=== PATIENT | male | born 1975 | race Caucasian/White ===

== ENCOUNTER 2017-05-31 09:47 | Outpatient (CLI) | payer OTHER | END 2017-05-31 09:48 | disposition home or self-care (01) | LOC: SC 09:47 | PROVIDERS: ATTEND Internal Medicine Pulmonary Disease | DX: G47.33 Obstructive sleep apnea (adult) (pediatric) (principal); G47.61 Periodic limb movement disorder | CPT/HCPCS: 99203; 99212 ==

== ENCOUNTER 2018-01-26 08:00 | Outpatient (CLI) | payer OTHER ==
--- NOTE | 2018-01-26 14:37 | MRI Report ---
Reason: PAIN IN UNSPECIFED SHOULDER Procedure Date: 01/26/2018 Accession Number: [id number] / [id number] Procedure: MRI - Shoulder LT W/O CPT Code: FULL RESULT: EXAM: LEFT SHOULDER MRI WITHOUT CONTRAST EXAM DATE: 01/26/2018 08:58 AM. CLINICAL HISTORY: Bilateral shoulder pain. COMPARISON: None. TECHNIQUE: Multiplanar, multisequence T1-weighted and fluid-sensitive sequences of the shoulder without contrast. Other: None. FINDINGS: Acromioclavicular Region: The acromion is type II. The acromioclavicular joint is unremarkable. The coracoacromial and coracoclavicular ligaments are intact. No subacromial/subdeltoid bursal fluid. Glenohumeral Region: No subluxation. No effusion or loose bodies. The articular cartilage is unremarkable. The glenohumeral ligaments and joint capsule are unremarkable. Bone Marrow: No fracture, marrow edema or bone lesions. Labrum: The labrum is unremarkable on this nonarthrographic study. Musculature/Rotator Cuff: Mild T2 hyperintensity distal supraspinatus, tendinosis. Remaining rotator cuff tendons appear normal. No edema or fatty atrophy. Mild edema in the rotator interval. Biceps Tendon: The long head of the biceps tendon and biceps viry are intact. Other: The subcutaneous tissues are unremarkable. IMPRESSION: 1. Mild distal supraspinatus tendinosis. 2. Labrum appears intact on noncontrast imaging. 3. Bony structures appear normal. 4. Mild edema in the rotator interval, bursitis versus sprain. [facility] SE[facility]
--- NOTE | 2018-01-26 14:54 | MRI Report ---
Reason: PAIN IN UNSPECIFED SHOULDER Procedure Date: 01/26/2018 Accession Number: [id number] / [id number] Procedure: MRI - Shoulder RT W/O CPT Code: FULL RESULT: EXAM: RIGHT SHOULDER MRI WITHOUT CONTRAST EXAM DATE: 01/26/2018 09:11 AM. CLINICAL HISTORY: Bilateral shoulder pain. COMPARISON: None. TECHNIQUE: Multiplanar, multisequence T1-weighted and fluid-sensitive sequences of the shoulder without contrast. Other: None. FINDINGS: Acromioclavicular Region: The acromion is type II. The acromioclavicular joint is unremarkable. The coracoacromial and coracoclavicular ligaments are intact. No subacromial/subdeltoid bursal fluid. Glenohumeral Region: No subluxation. No effusion or loose bodies. The articular cartilage is unremarkable. The glenohumeral ligaments and joint capsule are unremarkable. Bone Marrow: No fracture, marrow edema or bone lesions. Labrum: The labrum is unremarkable on this nonarthrographic study. Musculature/Rotator Cuff: Mild T2 hyperintensity distal infraspinatus. Also, associated 0.7 cm 25-50% partial thickness undersurface tear. Remaining rotator cuff tendons appear normal. No edema or fatty atrophy. Biceps Tendon: The long head of the biceps tendon and biceps viry are intact. Other: The subcutaneous tissues are unremarkable. IMPRESSION: 1. Mild tendinosis and small partial-thickness undersurface tear of the distal infraspinatus. 2. Bony structures unremarkable. 3. Labrum appears intact on noncontrast imaging. [facility] SECTION
== END 2018-01-26 08:01 | disposition home or self-care (01) ==
LOC: DI 08:00
PROVIDERS: ATTEND Student in an Organized Health Care Education/Training Program
DX: M67.814 Other specified disorders of tendon, left shoulder (principal); M67.813 Other specified disorders of tendon, right shoulder; S46.811A Strain of other muscles, fascia and tendons at shoulder and upper arm level, right arm, initial encounter

== ENCOUNTER 2021-11-03 10:49 | Outpatient (CLI) | payer OTHER ==
[2021-11-03 12:09] VITALS: BP 138/76
--- NOTE | 2021-11-03 12:09 | SLEEP CARE CONSULTATION ---
Information from patient questionnaire entered by Silvina De Paz. I have reviewed and concur with the information entered by Silvina De Paz. This document represents the service I personally performed and the decisions made by me, Vianey Solorio ARNP. History of Present Illness Service Date and Time: 11/03/2021 1049 Reason for Visit: Previously diagnosed sleep apnea, sleep apnea on CPAP therapy, Re-establish care Chief Complaint: reports: Unrefreshed sleep, Snoring, Excessive daytime sleepiness, Observed pauses in breathing, Fatigue, Frequent awakenings at night, Other (UPDATE SUPPLIES) Date of Onset: 2014 Usual bedtime: 10PM Time it takes to fall asleep: 15 MINUTES Snores at night: Yes Observed to quit breathing while asleep: Yes Sleeps alone due to snoring: No Number of times waking at night: COUPLE Reasons for waking at night: reports: Choking, Snoring, Gasping for air, Bathroom Toss, Turn, or Twitch while sleeping: Yes Recalls having dreams: Yes Usually gets out of bed at: 0630 Feels refreshed in the morning: No Morning headache: Yes (RESOLVES AT 9AM) Sleepy or fatigued during the day: Yes Ever fallen asleep while driving: No Takes day naps: No Dreams during day naps: No Prior sleep studies: Yes Year and Where: [facility] Type of Sleep Study: Polysomnography Additional HPI information: JAYASHREE HODGE was previously diagnosed to have mild, AHI 5.8, obstructive sleep apnea-hypopnea syndrome and comes in today to re-establish care for BIPAP therapy. He needs to update supplies. - Parasomnia Symptoms Ever been unable to move upon waking from sleep: No Walks in sleep: No Talks in sleep: Yes Ever acted out dreams in sleep: No Ever felt weak in the knees when startled or emotional: Yes Bothered by creepy, crawly, restless sensations in legs: Yes Problems with memory or concentration: Yes CPAP Compliance Data - Data Reviewed with Patient Average duration of nightly device use: 6 hours 58 minutes Compliance rate %: 81 (166/180 days used) Current pressure setting (cmH2O): 8/4, with 4 cmH2O pressure support Average residual AHI: 1.0 Average large leak: 0.4 L/min Compliance data discussion: He states he gets regular supplies from his DME. He is using a Amarra View full face mask. He just changed his mask cushion 1 month ago. Subjective Patient concerns: reports: condensation in mask/hose. denies: aerophagia, mask discomfort, air blowing in eyes, mask leak noise, nasal congestion, dry mouth, nose, throat, epistaxis Observed to snore while using device: No Current pressure setting perceived as: comfortable On therapy, patient: reports: sleeping better, awakening more refreshed, being more awake and alert during the day, more rested overall. denies: drowsiness while driving Initial [place] Sleepiness Scale score: 20 (prior to BIPAP) Current [place] Sleepiness Scale score: 2 (10/2021) Past Medical History Past Medical History: reports: Arthritis, GERD, Other (shouder surgery Jan 2021; thumb surgery next month; abdominal hernia, needs repaired; RLS) Social History The patient's occupation is a AM. Patient is Single and lives in . Have you smoked in the past 12 months: No Alcohol use: Yes Alcohol amount and frequency: 1, COUPLE OF DAYS Caffeine use: Yes Caffeine amount and frequency: 1 DAILY Family History Family history of sleep disordered breathing: No Allergies and Home Medications Known drug allergies: No Drug allergies reviewed: Yes (NKDA) Home medication list reviewed: Yes Allergy and home medication list: Medications: Ropinirole for RLS Pantoprazole, for acid reflux Aleve, prn Review of Systems Gastrointestinal: reports: heartburn, abdominal pain Ear/Nose/Throat: reports: wisdom teeth removed. denies: tonsillectomy Musculoskeletal: reports: joint pain, neck pain, back pain Physical Exam Vital signs obtained and entered by: ZAIN JIMENEZ Blood Pressure: 138/76 (left arm ) Cuff size: regular Heart Rate: 59 O2 Saturation: 97 Height: 5 ft 11 in Weight: 232 lb Body Mass Index: 32.3 BMI Classification: Obese Neck circumference: 18.5 (inches ) Heart: regular rate and rhythm Lungs: clear bilaterally Impression and Plan 1. Obstructive Sleep Apnea-Hypopnea Syndrome, mild, with good treatment complia nce and good apnea control. On BIPAP therapy, the patient has better sleep quality and is more rested overall. He was seen in this office many years ago and [place] He continues to use his BIPAP nightly and is happy with current pressure settings. He has significant improvement of his sleep apnea. Patient states that he get regular shipment of his supplies from his [employer] company but he does not remember their name. He comes in today just to get a compliance visit. He will find their name and call us with their information so we can fax off his updated supply prescription. Patient's apnea severity and rationale for treatment to reduce apnea, improve sleep quality and reduce cardiovascular and cerebrovascular events was reviewed. I also reviewed the benefit of consistent device use of BIPAP for gastric reflux. * Continue BIPAP pressure at 8/4 cmH2O * Update supplies * Notify me if snoring with mask or feeling that the pressure is too much or too little * Attempt to lose weight * Call this office if any problems using BIPAP * Return for follow up in 1 year, or sooner if concerns arise Counseling Topics: Spare mask, Weight loss health impact Visit Type: In Office Time Spent with Patient (minutes): 30 Provider Statement: I spent 100% of the Face to Face Visit with the patient with greater than 50% spent counseling the patient and coordination of care.
== END 2021-11-03 10:50 | disposition home or self-care (01) ==
LOC: SC 10:49
PROVIDERS: ATTEND Nurse Practitioner Family
DX: G47.33 Obstructive sleep apnea (adult) (pediatric) (principal); E66.9 Obesity, unspecified; Z68.32 Body mass index [BMI] 32.0-32.9, adult
CPT/HCPCS: 99203; 99212

== ENCOUNTER 2022-12-15 15:04 | Outpatient (CLI) | payer OTHER ==
--- NOTE | 2022-12-15 15:27 | Sleep Patient Instructions ---
Sleep Center Visit Summary - Patient Visit Information Reason for Visit: Annual visit - Patient Instructions Additional Instructions: You will continue with CPAP therapy with pressure set at 8/4 cmH2O. A supply prescription will be updated with your DME. We encourage you to continue to try to lose weight. Please follow up with the sleep care office in 1 year. - Clinic Information Contact: [facility] [address] [place] [email or web address] T: [phone]
--- NOTE | 2022-12-15 15:31 | SLEEP CARE CONSULTATION ---
Information from patient questionnaire entered by Divya Hines. I have reviewed and concur with the information entered by Divya Hines. This document represents the service I personally performed and the decisions made by , Vianey Solorio ARNP. History of Present Illness Service Date and Time: 12/15/2022 1504 Previous diagnosis: Mild, Obstructive Sleep Apnea-Hypopnea Syndrome AHI: 5.8 (in 2016) Reason for follow up: annual (LAST SEEN 10/2021) Equipment type: CPAP (RESMED AirCurve 10, s/u 7 2017, NEED SD CARD) Equipment obtained from: [employer] (getting supplies) Mask style: Full face (Angelique View, large cushion) Backup mask available: Yes Last cushion change: monthly Prior sleep studies: Yes Year and Where: [facility] Type of Sleep Study: Polysomnography (2015) HPI additional information: JAYASHREE HODGE was diagnosed to have mild, AHI 5.8, obstructive sleep apnea- hypopnea syndrome and returned today for BIPAP therapy annual follow-up. Sleep Study - Results Type of Sleep Study: Polysomnography Prior sleep studies: Yes Year and Where: [facility] CPAP Compliance Data - Data Reviewed with Patient Average duration of nightly device use: 7 hours 11 minutes Compliance rate %: 92 (352/365 days used) Current pressure setting (cmH2O): 8/4 with 4 support Average residual AHI: 0.5 Central apnea: 0 Obstructive apnea: 0.2 Average large leak: 0.4 L/min Subjective Missed days of use due to: reports: other (work) Patient concerns: reports: condensation in mask/hose (some in tube gurgling; keeps sleeping room cold). denies: aerophagia, mask discomfort, air blowing in eyes, mask leak noise, nasal congestion, dry mouth, nose, throat, epistaxis Observed to snore while using device: No Current pressure setting perceived as: comfortable On therapy, patient: reports: sleeping better, awakening more refreshed, being more awake and alert during the day, more rested overall. denies: drowsiness while driving Initial [place] Sleepiness Scale score: 20 (prior to BIPAP) Current [place] Sleepiness Scale score: 17 (12/15/22) Allergies and Home Medications Known drug allergies: No Drug allergies reviewed: Yes Home medication list reviewed: Yes (no changes) Allergy and home medication list: Allergies No Known Drug Allergies Allergy (Verified 12/14/22 15:55) Review of Systems Review of systems same as previous: Yes (NO CHANGE) Physical Exam Vital signs obtained and entered by: DIVYA Benson MA Blood Pressure: 112/72 (LEFT ARM) Cuff size: regular Heart Rate: 73 O2 Saturation: 95 Height: 5 ft 11 in Weight: 236 lb 12.8 oz Weight change since last visit: 4 lb loss Body Mass Index: 33.0 BMI Classification: Obese Impression and Plan 1. Obstructive Sleep Apnea-Hypopnea Syndrome, mild, with good treatment compliance and good apnea control. On BIPAP therapy, the patient has better sleep quality and is more rested overall. He has had some condensation gathering in the tube causing noises. He states he does keep a very cold sleeping room, about 60 degrees. I encouraged him to get a tube covering to help reduce condensation in the tube since he has tried to adjust humidity and heated tubing. He voiced understanding. Patient has significant improvement of their sleep apnea and is satisfied with current CPAP therapy. Patient denies problems with oral dryness, nasal congestion, epistaxis, skin irritation or aerophagia. Patient's apnea severity and rationale for treatment to reduce apnea, improve sleep quality and reduce cardiovascular and cerebrovascular events was reviewed. I also reviewed the benefit of consistent device use of BIPAP for gastric reflux and RLS. 2. Obesity, unspecified. Currently patients BMI is 33. Obesity increases the risk of apnea, BIPAP pressure requirements and overall health risks especially cardiovascular and diabetes. Thus patient is advised to continue to try to lose weight. * Continue BIPAP pressure at 8/4 cmH2O * Update supply prescription * Notify me if snoring with mask or feeling that the pressure is too much or too little * Attempt to lose weight * Call this office if any problems using CPAP * Return for follow up in 1 year, or sooner if concerns arise Counseling Topics: Spare mask, Weight loss health impact Prescriptions: Device supplies Follow up with Sleep Care in: 1 year Visit Type: In Office Time Spent with Patient (minutes): 12 Provider Statement: I spent 100% of the Face to Face Visit with the patient with greater than 50% spent counseling the patient and coordination of care.
[2022-12-15 15:34] VITALS: BP 112/72; O2SAT 95
== END 2022-12-15 15:05 | disposition home or self-care (01) ==
LOC: SC 15:04
PROVIDERS: ATTEND Nurse Practitioner Family
DX: G47.33 Obstructive sleep apnea (adult) (pediatric) (principal); E66.9 Obesity, unspecified; Z68.33 Body mass index [BMI] 33.0-33.9, adult
CPT/HCPCS: 99212